=== PATIENT | male | born 1980 | race Caucasian/White ===

== ENCOUNTER 2019-04-15 11:13 | Emergency (ER) | payer BC ==
[2019-04-15] MEDS ORDERED: ONDANSETRON 4 MG TAB.RAPDIS PO ONE (11:53)
--- NOTE | 2019-04-15 11:54 | ER Document Report ---
ED Medical Screen (RME) - General Chief Complaint: Nausea Stated Complaint: SICK Time Seen by Provider: 04/15/19 11:50 Mode of Arrival: Ambulatory Information source: Patient Notes: Patient is a 38-year-old male presented to the emergency department with 3-day history of body cramps, nausea and vomiting. He denies any diarrhea. He denies any fevers. His vital signs are within normal limits on arrival he is not hypotensive or tachycardic. He is not actively vomiting at time of arrival. Exam: Abdomen soft, nontender with no guarding and no rebound. Patient alert, oriented, answering all questions with no acute distress noted. I have greeted and performed a rapid initial assessment of this patient. A comprehensive ED assessment and evaluation of the patient, analysis of test resu lts and completion of the medical decision making process will be conducted by additional ED providers. I have specifically instructed the patient or family members with the patient to immediately return to any nursing staff should anything change in the patient's condition or with their chief complaint. This medical record was dictated with voice recognizing software. There may be grammatical, syntax errors that are unintended. TRAVEL OUTSIDE OF THE [place] IN LAST 30 DAYS: No Past Medical History - Social History Frequency of alcohol use: None Drug Abuse: None Renal/ Medical History: Denies: Hx Peritoneal Dialysis Physical Exam - Vital signs Vitals: Temp Pulse Resp BP Pulse Ox 97.7 F 60 18 120/88 H 97 04/15/19 11:18 04/15/19 11:18 04/15/19 11:18 04/15/19 11:18 04/15/19 11:18 Course - Vital Signs Vital signs: Temp Pulse Resp BP Pulse Ox 97.7 F 60 18 120/88 H 97 04/15/19 11:18 04/15/19 11:18 04/15/19 11:18 04/15/19 11:18 04/15/19 11:18
[2019-04-15 12:28] LABS: ABSOLUTE BASOPHILS # (AUTO) 0.1 10^3/uL (0.0-0.2); ABSOLUTE EOSINOPHILS # (AUTO) 0.5 10^3/uL (0.0-0.6); ABSOLUTE LYMPHOCYTES (AUTO) 1.9 10^3/uL (0.5-4.7); ABSOLUTE MONOCYTES (AUTO) 0.7 10^3/uL (0.1-1.4); ABSOLUTE NEUT (AUTO) 3.8 10^3/uL (1.7-8.2); BASOPHILS % (AUTO) 0.8 % (0-2); EOSINOPHILS % (AUTO) 6.7 % (0-6); HEMATOCRIT 46.5 % (37.9-51.0); HEMOGLOBIN 16.1 g/dL (13.5-17.0); LYMPHOCYTES % (AUTO) 27.5 % (13-45); MEAN CORPUSCULAR HEMOGLOBIN 31.7 pg (27.0-33.4); MEAN CORPUSCULAR HGB CONC 34.5 g/dL (32.0-36.0); MEAN CORPUSCULAR VOLUME 92 fl (80-97); MONOCYTES % (AUTO) 10.2 % (3-13); PLATELET COUNT 206 10^3/uL (150-450); RED BLOOD COUNT 5.06 10^6/uL (4.35-5.55); RED CELL DISTRIBUTION WIDTH 13.1 % (11.5-14.0); SEGMENTED NEUTROPHILS % (AUTO) 54.8 % (42-78); TOTAL CELLS COUNTED % (AUTO) 100 %; WHITE BLOOD COUNT 6.9 10^3/uL (4.0-10.5)
[2019-04-15 12:34] LABS: APPEARANCE,URINE CLEAR; BILIRUBIN,URINE NEGATIVE (NEGATIVE); COLOR,URINE YELLOW; GLUCOSE, URINE NEGATIVE (NEGATIVE); KETONES,URINE NEGATIVE (NEGATIVE); LEUKOCYTE ESTERASE,URINE NEGATIVE (NEGATIVE); NITRITE,URINE NEGATIVE (NEGATIVE); PROTEIN,URINE NEGATIVE (NEGATIVE); URINE SPECIFIC GRAVITY 1.023; UROBILINOGEN,URINE NEGATIVE mg/dL (<2.0)
[2019-04-15 12:56] LABS: ALANINE AMINOTRANSFERASE 15 U/L (21-72); ALBUMIN 5.2 g/dL (3.5-5.0); ALKALINE PHOSPHATASE 84 U/L (38-126); ANION GAP 11 (5-19); ASPARTATE AMINO TRANSFERASE 55 U/L (17-59); BILIRUBIN,DIRECT 0.3 mg/dL (0.0-0.4); BILIRUBIN,TOTAL 0.7 mg/dL (0.2-1.3); BLOOD UREA NITROGEN 26 mg/dL (7-20); CALCIUM 9.9 mg/dL (8.4-10.2); CARBON DIOXIDE 28 mmol/L (22-30); CHLORIDE 98 mmol/L (98-107); GLUCOSE 136 mg/dL (75-110); LIPASE 128.5 U/L (23-300); POTASSIUM 3.9 mmol/L (3.6-5.0); SODIUM 137.3 mmol/L (137-145); TOTAL PROTEIN 8.6 g/dL (6.3-8.2)
[2019-04-15] MEDS ORDERED: NORMAL SALINE 1000 ML 1,000 ML IV ONE (14:50)
[2019-04-15] MEDS ORDERED: FAMOTIDINE INJ/PF 20 MG/2 ML SDV IV ONE (14:55)
[2019-04-15] MEDS ORDERED: METOCLOPRAMIDE HCL INJ/PF 10 MG/2 ML SDV IV ONE (14:55)
--- NOTE | 2019-04-15 14:59 | ER Document Report ---
ED GI/ - General Chief Complaint: Nausea Stated Complaint: SICK Time Seen by Provider: 04/15/19 11:50 Mode of Arrival: Ambulatory Notes: Patient is a 38-year-old male with a history of asthma who presents to the emerg ency department with a 3-day history of nausea and vomiting. Patient states that 3 days ago he developed nausea and when attempting to eat he vomits. Patient states he was able to tolerate his dinner last night but woke up this morning and gagged a little bit. Patient states he did vomit in his mouth within continue to swallow it. Patient states he has had intermittent waves of nausea since then. Patient denies diarrhea. Patient denies fever or sick contacts. Patient denies recent travel. Patient states he is having a bilateral leg cramping. 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 Patient states he has been attempting to hydrate appropriately but has not been feeling well over the past few days. Patient denies abdominal pain. Patient reports intermittent headache but denies headache at this time. Patient denies dizziness. Patient denies urinary symptoms. TRAVEL OUTSIDE OF THE [place] IN LAST 30 DAYS: No - Related Data Allergies/Adverse Reactions: No Known Allergies Allergy (Verified 04/15/19 15:39) Past Medical History - General Information source: Patient - Social History Smoking Status: Current Every Day Smoker Cigarette use (# per day): Yes - 5-6 cigs per day Chew tobacco use (# tins/day): No Smoking Education Provided: Yes Frequency of alcohol use: None Drug Abuse: None, Marijuana Lives with: Family Family History: None Patient has suicidal ideation: No Patient has homicidal ideation: No - Past Medical History Cardiac Medical History: Reports: None Pulmonary Medical History: Reports: Hx Asthma EENT Medical History: Reports: None Neurological Medical History: Reports: None Endocrine Medical History: Reports: None Renal/ Medical History: Reports: None. Denies: Hx Peritoneal Dialysis Malignancy Medical History: Reports None GI Medical History: Reports: None Musculoskeletal Medical History: Reports None Skin Medical History: Reports None Psychiatric Medical History: Reports: None Traumatic Medical History: Reports: None Infectious Medical History: Reports: None Past Surgical History: Reports: Hx Tonsillectomy Review of Systems - Review of Systems Constitutional: See HPI EENT: No symptoms reported Cardiovascular: No symptoms reported Respiratory: No symptoms reported Gastrointestinal: See HPI Genitourinary: No symptoms reported Male Genitourinary: No symptoms reported Musculoskeletal: See HPI Skin: No symptoms reported Hematologic/Lymphatic: No symptoms reported Neurological/Psychological: No symptoms reported Physical Exam - Vital signs Vitals: Temp Pulse Resp BP Pulse Ox 97.7 F 60 18 120/88 H 97 04/15/19 11:18 04/15/19 11:18 04/15/19 11:18 04/15/19 11:18 04/15/19 11:18 Interpretation: Normal - Notes Notes: GENERAL: Well-appearing, well-nourished and in no acute distress. HEAD: Atraumatic, normocephalic. EYES: Pupils equal round and reactive to light, extraocular movements intact, sclera anicteric, conjunctiva are normal. ENT: TMs normal, nares patent, oropharynx clear without exudates. Moist mucous membranes. NECK: Normal range of motion, supple without lymphadenopathy or JVD. LUNGS: Breath sounds clear to auscultation bilaterally and equal. Anterior upper lobe expiratory wheeze, rhonchi that clears with cough. HEART: Regular rate and rhythm without murmurs, rubs or gallops. ABDOMEN: Soft, nontender, normoactive bowel sounds. No guarding, no rebound. No masses appreciated. BACK: No cervical, thoracic, lumbar midline tenderness. No saddle anesthesia, normal distal neurovascular exam. GENITOURINARY: Deferred. EXTREMITIES: Normal range of motion, no pitting or edema. No clubbing or cyanosis. NEUROLOGICAL: Cranial nerves II through XII grossly intact. Normal speech, normal gait. PSYCH: Normal mood, normal affect. SKIN: Warm, Dry, normal turgor, no rashes or lesions noted. Course - Re-evaluation Re-evalutation: 04/15/19 14:58 Patient's initial presentation is unremarkable and patient is nontoxic- appearing. Patient's BUN and creatinine were slightly elevated. I have ordered IV fluids and additional nausea medication as the patient states that the nausea continues to be intermittent. Patient states he has not had any vomiting since arriving into the emergency department. I did discuss the lab results with the patient and his significant other. Patient denies questions at this time. After the above interventions I will give the patient a p.o. challenge and reassess. 04/15/19 15:35 Patient's did come out to the nurses station and expressed concern that the patient has had issues with wheezing and his asthma recently. Upon evaluation patient does have expiratory wheeze in the left upper lobe. Patient states he does smoke about 5 to 6 cigarettes/day has been out of it has albuterol inhaler. Patient is in no acute distress. I will give the patient a DuoNeb and albuterol inhaler to take home. Educate the patient regarding smoking sensation. 04/15/19 16:54 Upon reevaluation patient is resting comfortably on stretcher. Patient states he feels much better with his nausea. Patient has tolerated liquids without vomiting. Patient states he is ready to go home. Patient's vital signs are stable and patient is nontoxic-appearing. - Vital Signs Vital signs: Temp Pulse Resp BP Pulse Ox 97.9 F 56 L 16 128/72 H 100 04/15/19 16:50 04/15/19 16:50 04/15/19 16:50 04/15/19 16:50 04/15/19 16:50 - Laboratory Result Diagrams: 04/15/19 12:05 04/15/19 12:05 Laboratory results interpreted by me: 04/15/19 04/15/19 12:05 12:05 Eosinophils % 6.7 H BUN 26 H Creatinine 1.29 H Glucose 136 H ALT 15 L Total Protein 8.6 H Albumin 5.2 H 04/15/19 14:59 Slight elevation in the BUN and creatinine. Discharge - Discharge Clinical Impression: Wheezing, Dehydration Nausea & vomiting Qualifiers: Vomiting type: unspecified Vomiting Intractability: non-intractable Qualified Code(s): R11.2 - Nausea with vomiting, unspecified Asthma Qualifiers: Asthma severity: mild Asthma persistence: unspecified Asthma complication type: uncomplicated Qualified Code(s): J45.909 - Unspecified asthma, uncomplicated Condition: Stable Disposition: HOME, SELF-CARE Instructions: Antinausea Medication ([facility]), Intravenous (IV) Fluids ([facility]), Reglan ([facility]), Vomiting ([facility]) Additional Instructions: Today you were seen in the emergency department for nausea and vomiting. Your blood work did show that you are slightly dehydrated. We did give you multiple doses of anti-nausea medication as well as IV fluids in which he stated you feel much better. Please take the Zofran as needed for nausea and advance her diet as tolerated. Over the next 24 hours I would sip on clear liquids and start with bland foods such as dry toast, applesauce, mashed potatoes, etc. Please continue to hydrate as much as possible if working outdoors with frequent breaks in the shade. You are also noted to have slight expiratory wheeze which could be exacerbated from your asthma. Please stop smoking. Please use the albuterol inhaler provided to you at discharge as instructed, 2 puffs every 4 hours as needed for wheezing. Please seek medical attention if you develop shortness of breath, wheezing that is not controlled with the albuterol, fever or any other concerning signs or symptoms. Nausea or Vomiting, Nonspecific Vomiting (or nausea without vomiting) can be caused by many different problems. Of course, it can mean that something's wrong with the stomach, such as "stomach flu," ulcers, or inflammation. But it can also be a symptom of a problem that has nothing to do with the stomach or intestines. Vomiting is common with severe headaches, earaches, and tonsillitis. We see it with pneumonia or heart attacks. Drugs can cause nausea. Many abdominal problems cause vomiting; for example, gallstones, kidney stones, pancreatitis, and intestinal obstruction (blocked bowels). In most cases, curing the vomiting depends on fixing the problem that caused it. For temporary relief, we may use an anti-nausea medicine. For home use, we can prescribe suppositories, chewable pills, pills that dissolve in the mouth, or liquid anti-nausea drugs. If the vomiting seems to be caused by a problem in the stomach, acid-suppressing drugs may be prescribed as well. It's important to avoid dehydration. Sip clear liquids. Take increasing amounts of fluid over the first 24 hours. Then start small amounts of bland foods (such as dry toast, applesauce, mashed potato). Avoid aspirin, tobacco, and alcohol. Gradually resume your usual diet. If the vomiting worsens, if the problem that's making you vomit worsens, or if there's evidence of bleeding in the stomach (such as black, tarry stool, bloody or black vomit, or lightheadedness), you should return immediately. Call your doctor if you aren't improved in 24 to 36 hours. Asthma You have been diagnosed as having asthma. This is a condition where there is episodic tightness in the bronchial tubes. Allergies, infections, and polluted or cold air may be contributing factors. Emergency treatment of a severe asthma attack may include adrenaline shots, or bronchodilator aerosol. You may feel lightheaded, have a decreased exercise tolerance and a rapid pulse for an hour or two. Rest and get plenty of fluids. Home treatment of asthma requires bronchodilator drugs. These can be administered by injection, inhalation, or by mouth. Antibiotics and corticosteroids may be required for some patients. You should avoid chemical fumes, dusts, pollens, and exercising in very cold or dry air. If you smoke, stop!! If you develop a fever, increased wheezing, chest pain, or severe shortness of breath, you should contact the doctor immediately Forms: Smoking Cessation Education, Return to Work
[2019-04-15] MEDS ORDERED: IPRATROPIUM/ALBUTEROL 0.5-2.5 MG/3 ML AMPUL NEB ONE (15:36)
[2019-04-15] MEDS ORDERED: ALBUTEROL SULFATE HFA (90 MCG/PUFF) 8 GM MDI (1 MDI/ER DISP) IH ONE (15:36)
[2019-04-15 16:54] VITALS: BP 128/72
[2019-04-15] MEDS ORDERED: ONDANSETRON ODT 4 MG TAB (6 TAB/ER DISP) PO PRN (16:56)
== END 2019-04-15 17:03 | disposition home or self-care (01) ==
LOC: ER 11:13
DX: E86.0 Dehydration (principal); R11.2 Nausea with vomiting, unspecified; F17.210 Nicotine dependence, cigarettes, uncomplicated; J45.909 Unspecified asthma, uncomplicated
CPT/HCPCS: 99284; 96361; 96374; 96375; 36415; 83690; 85025; 80053; 81001; S0119; J2765; J7030; S0028; J3490